=== PATIENT | male | born 2000 | race African-American/Black ===

== ENCOUNTER 2023-01-16 17:57 | Emergency (ER) | payer BC ==
[2023-01-16] MEDS ORDERED: Boostrix 0.5 ML (Tdap) VIAL (>/=7 yrs of age) ONE (19:00)
== END 2023-01-16 19:45 | disposition home or self-care (01) ==
LOC: CSHERS 17:57
DX: S09.90XA Unspecified injury of head, initial encounter (principal); V00.131A Fall from skateboard, initial encounter
CPT/HCPCS: 70486; 90471; 90715